=== PATIENT | female | born 1975 | race Caucasian/White ===

== ENCOUNTER 2022-05-26 08:38 | Outpatient (CLI) | payer OTHER, SELFPAY ==
--- NOTE | 2022-05-26 08:30 | ECG_ITS ---
Measurements Intervals [place] Rate: 74 P: -28 NV: 169 QRS: -27 QRSD: 83 T: -29 QT: 386 QTc: 428 Interpretive Statements SINUS RHYTHM ANTERIOR MYOCARDIAL INFARCTION [40+ ms Q WAVE AND/OR ST/T ABNORMALITY IN V3/V4], PROBABLY OLD INFERIOR MYOCARDIAL INFARCTION [40+ ms Q WAVE AND/OR ST/T ABNORMALITY IN II/aVF], OF INDETERMINATE AGE ABNORMAL ECG NO PREVIOUS ECG AVAILABLE FOR COMPARISON Electronically Signed On 05-26-2022 14:01:34 CDT by Damon Gardner M.D.
[2022-05-26 09:10] LABS: Hematocrit 39.7 % (37.0-47.0); Hemoglobin 13.1 g/dL (12.0-15.0)
[2022-05-26 09:25] LABS: INR 1.6
[2022-05-26 09:26] LABS: Partial Thromboplastin Time 39.4 SECONDS (22.3-36.8)
[2022-05-26 09:29] LABS: Anion Gap 9 mmol/L (8-16); Blood Urea Nitrogen 13 mg/dL (7-17); Carbon Dioxide 30 mmol/L (22-30); Chloride 98 mmol/L (98-107); Estimated Glomerular Filt Rate > 60; Glucose 122 mg/dL (65-110); Potassium 3.5 mmol/L (3.4-5.0); Sodium 137 mmol/L (137-145)
== END 2022-05-26 08:39 | disposition home or self-care (01) ==
LOC: ANHSURGERY 08:44
PROVIDERS: Anesthesiology; PCP Family Medicine; Visit Provider Obstetrics & Gynecology
DX: I10 Essential (primary) hypertension (principal); D69.9 Hemorrhagic condition, unspecified; D64.9 Anemia, unspecified; Z01.818 Encounter for other preprocedural examination
CPT/HCPCS: 36415; 80048; 85014; 85018; 85610; 85730; 93005

== ENCOUNTER 2022-07-28 02:57 | Day surgery (SDC) | payer OTHER, SELFPAY ==
[2022-05-22 16:51] VITALS: BMI 35.4
--- NOTE | 2022-05-22 17:01 | PC.NURSE ---
Addendum entered by Lyla Gooden RN 07/16/22 13:03: PT TO ARRIVE AT 0800 ON 07/28/22 FOR SURGERY AT 1000. PT STATES SHE WAS INSTRUCTED BY DR. MOBLEY TO STOP XARELTO AFTER HER EVENING DOSE ON 07/26. Addendum entered by Deidra Valera RN 05/22/22 17:18: PT STATES DR. MOBLEY INSTRUCTED HER TO USE HER XARELTO LAST ON 05/26/22 Original Note: Report to the Outpatient Waiting Room, entrance under the [place] [facility] located off [facility], at time _0900 on date 05/28/22_. OR Time: _1100_. - You and your visitor will be asked to self-screen and do not enter if you have any COVID symptoms. - Only one visitor and NO children visitors are allowed at this time. - The patient visitor is requested to leave or wait in car when not with patient due to restrictions. - A mask is required within the hospital. Patients may have clear liquids (water, carbonated beverages, clear teas, apple juice) until 3 hours prior to surgery with a maximum of 20 ounces. - No food from midnight until time of surgery - Infants may have breast milk until 4 hours before surgery, infant formula 6 hours prior to surgery. - Children will be allowed to drink immediately following surgery. If applicable, please bring a bottle or sippy cup to assist with drinking. Juice, water, soda, and popsicles are readily available. For infants on formula, please bring formula the day of surgery. Pacifiers are allowed. Take the following medications with a SIP of water the morning of surgery: _NONE Medications to discontinue per physician ___XARELTO Date to take last dose__05/26/22 Please no make-up, nail hungarian, hairspray, perfume, deodorant, or body powder the day of surgery. No jewelry (including any body piercings) or valuables the day of surgery, leave them at home. Please take a shower or bath the night before, or the morning of, surgery with an antibacterial soap. Wear comfortable, loose fitting clothing. Children are encouraged to wear pajamas. - Jewelry must be removed prior to entering the operating room. Rings and piercings that are not removed may be cut off. - The hospital will not accept responsibility for valuables. - Please leave all valuables, including medications, at home the day of surgery. If you are going home after surgery, a licensed regional refrigerated cdl truck driver must drive you home. - NO public transportation without another adult. - We recommend that an adult stay with you for 24 hours following discharge. - We also recommend that you do not drive, make important decision, drink alcoholic beverages, or take any drugs that were not prescribed by your health care provider for at least 24 hours after your discharge time. For Pediatric surgeries, we recommend two adults accompany the child home (only one inside the building at this time). Follow any additional instructions given to you from your surgeon. If you or anyone in your household have experienced Covid symptoms in the past week, please notify your surgeon or the nurse liaison at the phone number below for possible testing. Telephone instructions given to _PATIENT___and asked if any additional questions and then verbalized understanding. Patient advised to call surgeon office or pre surgery nurse liaison [phone] if any additional questions.
[2022-07-16 12:51] VITALS: BMI 35.4
[2022-07-28] VITALS (11 sets, daily range): BP systolic 132–166; BP diastolic 70–93; PULSE 61–79; RESP 13–22; TEMP 36.2–36.6; O2SAT 96–100
[2022-07-28] MEDS: ACETAMINOPHEN 500 MG TABLET 1000 MG PO (08:29)
[2022-07-28] MEDS: KETOROLAC 15 MG/ML VIAL (*BKC) IV PUSH (08:45)
[2022-07-28] MEDS: LACTATED RINGERS 1,000 ML 30 ML IV CONT ×3 (08:45→15:15)
--- NOTE | 2022-07-28 09:04 | WPDANESEPPF ---
Anes - Initial Pre Proc Eval Procedure: Operation Date: 07/28/22 10:00 Proposed Procedures p Robotic Assisted Laparoscopic Bilateral Salpingectomy - Jasvir Rivera MD s Hysteroscopy Dilation and Curettage, Danette Endometrial Ablation - Jasvir Rivera MD Date/Time: 07/28/22 09:04 Surgeon: Jasvir Rivera MD Pre Op Diagnosis: menorrhagia, desires steriliziation Patient Data Age: 47 Gender: F Height: 1.55 m Weight: 82 kg Last Vital Signs Temp 36.6 C 07/28/22 08:48 Pulse 66 07/28/22 08:48 Resp 16 07/28/22 08:48 BP 132/81 07/28/22 08:48 Pulse Ox 98 07/28/22 08:48 O2 Del Method Room Air 07/28/22 08:48 Allergies Allergy/AdvReac Type Severity Reaction Status Date / Time No Known Allergies Allergy Verified 07/28/22 08:08 Home Medications Medication Instructions Recorded Confirmed Type cetirizine 10 mg tablet (Zyrtec) 10 mg PO DAILY 05/22/22 07/28/22 History rivaroxaban 20 mg tablet (Xarelto) 20 mg PO DAILY 05/22/22 07/28/22 History valsartan 160 1 tablet PO DAILY 05/22/22 07/28/22 History mg-hydrochlorothiazide 25 mg tablet Patient hx anesthesia problems: none Family hx anesthesia problems: none Results Review: All pre-operative results and documents have been reviewed as part of the pre-operative evaluation. [facility] Past Medical History Medical History (Updated 07/28/22 @ 09:05 by Zach Cifuentes MD) HTN (hypertension) Hyperlipidemia Obesity Social History Social History Smoking packs per day: 0.5 Smoking cigarettes per day: 10.0 Years smoked: 10 Smoking pack-years: 5.00 Smoking status: Former smoker Tobacco type: cigarettes Smoking end date: 10/12/11 Alcohol intake: current Alcohol use details: ONCE A MONTH-5 Substance use: never Substance use type: does not use Living arrangements: with family Spiritual care concerns: No Anes - Eval Final PreProcedure Day of Procedure 07/28/22 09:04 Patient weight: obese Heart: regular rate and rhythm Lungs: clear to auscultation Airway: Mallampati scale class II Last oral intake: >/= 8 hours ASA classification: III Emergent: no Anesthetic plan: proceed Results Review: All pre-operative results and documents have been reviewed as part of the pre-operative evaluation. Informed Consent: The patient's anesthetic plan and its attendant risks and benefits were discussed with the patient/family/POA. Questions were solicited and answers provided to the satisfaction of the patient/family/POA.
--- NOTE | 2022-07-28 10:18 | WPDHPUPDATE1 ---
History and Physical Update Update Date/Time: 07/28/22 10:18 History and Physical has been reviewed, including an updated exam of the patient. There are NO changes in the patient's condition. Risks, benefits, and alternatives have been discussed and questions answered. Patient agrees to proceed with procedure.
--- NOTE | 2022-07-28 13:13 | W.PM.PROC2 ---
Procedure Note - Detailed Date of Procedure 07/28/22 Pre-op Diagnosis menorrhagia, desires steriliziation Post-op Diagnosis Same ( adhesions, intra-abdominal; multiple left ovarian cysts, right ovarian cyst) Procedure Performed Robotic assisted bilateral salpingectomy, left oophorectomy, adhesiolysis; endometrial ablation with hysteroscopy , right ovarian cystectomy Surgeon Jasvir Rivera MD Anesthesia General Indications Unwanted fertility Findings Large hernia in the lower abdomen at the midline from approximately the umbilicus down to the suprapubic area. 3 large ovarian cyst in the left ovary containing dark fluid, adhesions between the omentum and the anterior abdominal wall, normal vulva, vagina, the cervix, normal appearing endometrial cavity. Description of Procedure the patient taken operating room she has prepped draped in the dorsal lithotomy position after induction of general anesthesia. 5 mm skin incision was made in the left upper quadrant the abdomen. The Visiport trocar was placed with the laparoscopic within the trocar. Pneumoperitoneum was achieved. A supraumbilical incision was made, it was 8 mm, a 8 mm robotic trocars placed the Intra-abdominal cavity. This was done under direct is a cystoscope as was a right upper quadrant trocar. and 8 mm incision was made with a scalpel and a 8 mm trocar was placed intra-abdominal cavity and direct visualization of the scope. The left upper quadrant trocar was replaced with a robotic trocar. The pelvis examined and the above findings were noted. 30 minutes of adhesiolysis was performed freeing the omentum from the anterior abdominal wall. The bilateral salpingectomy was performed. The mesosalpinx between the ovary and the fallopian tube was cauterized transected. In a stepwise fashion around the fallopian tube to the cornual region of the uterus mesosalpinx was grasped and cauterized transected vessel sealer. The tube was then transected at the uterine cornua bilaterally. This was all done in a bilateral fashion. The left ovary was removed. The infundibulopelvic ligament was grasped and cauterized and transected with the vessel sealer the paraovarian tissue was cauterized transected with the vessel sealer. A right ovarian cystectomy was performed. The cyst was drained in the cyst capsule was removed with the vessel sealer and the cut surface was cauterized. The specimens were placed through an endobag and they were taken out through the supraumbilical site. The incision had to be enlarged using scalpel. The fascia was then closed with 0 Vicryl. The skin was closed subcuticular Vishal Monocryl. The trocars were removed. The pneumoperitoneum was reduced. Speculum was placed in the vagina. Cervix grasped with a tenaculum. The hysteroscope was inserted the intrauterine cavity. It appeared normal. D&C was performed. The measurements were taken and the cavity length was entered into the hand piece. The handpiece was inserted and expanded. The energy cycle was started. The balloon of the cervix was inflated prior to that. With degenerative cycle was completed the hysteroscope was reinserted into the uterus and the a well desiccated uterine cavity was observed. The the procedure was then terminated. Sponge lap and needle counts were correct x2. The patient's take over room in stable condition. She tolerated the procedure well. Estimated Blood Loss -75.0 Drains No Packing No Pathology Yes Complications No immediate complications Condition Stable Disposition PACU
[2022-07-28] MEDS: fentaNYL CITRATE INJ (*CRX) 100 MCG/2 ML VIAL 25 MCG IV PUSH ×3 (13:39→14:02)
[2022-07-28] MEDS: oxyCODONE HCL (*CRX) 5 MG TAB IR PO (14:25)
[2022-07-28] MEDS: ONDANSETRON INJ 4 MG/2 ML VIAL IV PUSH (15:20)
--- NOTE | 2022-08-20 22:42 | PM.IMHP ---
H&P: HPI History of Present Illness Date/Time: 08/20/22 22:42 Chief Complaint: unwanted fertility Narrative: patient is a 47-year-old female with unwanted fertility. We have agreed to perform laparoscopic bilateral salpingectomy. She understands risks. She understands injuries make result in hospitalization, more surgery, severe illness. She denies any nausea, vomiting, fever, chills. She denies any chest pain or shortness of breath. Review of Systems Review of Systems: All systems reviewed & are unremarkable except as noted in HPI and below Constitutional: Constitutional: Denies chills, Denies fatigue, Denies fever(s) and Denies weakness Eyes: Eyes: Denies blurry vision, Denies change in vision, Denies loss of peripheral vision, Denies loss of vision, Denies other visual disturbances and Denies eye pain ENT: Denies vertigo, Denies dizziness, Denies hearing loss, Denies mouth pain, Denies nasal obstruction, Denies neck mass and Denies neck pain Cardiovascular: Cardiovascular: Denies chest pain, Denies diaphoresis, Denies syncope, Denies leg edema and Denies dyspnea Respiratory: Respiratory: Denies chest congestion, Denies cough, Denies hemoptysis, Denies dyspnea and Denies wheezing Gastrointestinal: Gastrointestinal: Denies abdominal pain, Denies constipation, Denies diarrhea, Denies nausea and Denies vomiting Genitourinary: Genitourinary: Denies hematuria, Denies change in libido, Denies nocturia, Denies genital lesions, Denies flank pain and Denies urinary urgency Musculoskeletal: Musculoskeletal: Denies abnormal gait, Denies back pain, Denies myalgias, Denies arthralgias, Denies joint swelling, Denies muscle weakness and Denies neck pain Integumentary/Breasts: Skin/Breast: Denies swelling, Denies breast pain, Denies breast mass, Denies dry skin, Denies nipple discharge, Denies unusual bruising and Denies jaundice Neurologic: Denies Neuro-related abnormal movements, Denies Abnormal speech present, Denies abnormal gait, Denies behavioral changes, Denies confusion, Denies vertigo, Denies dizziness, Denies syncope, Denies loss of vision, Denies memory loss, Denies convulsions and Denies weakness Psychiatric: Psychiatric: Denies abnormal sleep pattern, Denies behavioral changes, Denies change in libido, Denies confusion, Denies depression, Denies anhedonia and Denies memory loss Endocrine: Endocrine: Reports no additional endocrine complaints, Denies change in libido and Denies fatigue Hematologic/Lymphatic: Hematologic/Lymphatic: Reports no additional hematologic/lymphatic complaints Allergic/Immunologic: Allergic/Immunologic: Reports no additional allergic/immunologic complaints and Denies wheezing PMFSH Past Medical History Medical History (Updated 08/20/22 @ 22:44 by Jasvir Rivera MD) HTN (hypertension) Hyperlipidemia Obesity Social History Social History Smoking packs per day: 0.5 Smoking cigarettes per day: 10.0 Years smoked: 10 Smoking pack-years: 5.00 Smoking status: Former smoker Tobacco type: cigarettes Smoking end date: 10/12/11 Alcohol intake: current Alcohol use details: ONCE A MONTH-5 Substance use: never Substance use type: does not use Living arrangements: with family Spiritual care concerns: No Meds Home Medications and Allergies Home Medications Medication Instructions Recorded Confirmed Type cetirizine 10 mg tablet (Zyrtec) 10 mg PO DAILY 05/22/22 07/28/22 History rivaroxaban 20 mg tablet (Xarelto) 20 mg PO DAILY 05/22/22 07/28/22 History valsartan 160 1 tablet PO DAILY 05/22/22 07/28/22 History mg-hydrochlorothiazide 25 mg tablet hydrocodone 5 mg-acetaminophen 325 1 tablet PO Q4H PRN pain #14 tabs 07/28/22 Rx mg tablet Allergies Allergy/AdvReac Type Severity Reaction Status Date / Time No Known Allergies Allergy Verified 07/28/22 08:08 Exam Const: General: cooperative, healthy
== END 2022-07-28 15:45 | disposition home or self-care (01) ==
PROVIDERS: PCP Family Medicine; Visit Provider Obstetrics & Gynecology
PROC: 8E0W4CZ Robotic Assisted Procedure of Trunk Region, Percutaneous Endoscopic Approach (ICD-10-PCS; CPT 49320; principal; 2022-07-28 10:00)
PROC: 0U5B8ZZ Destruction of Endometrium, Via Natural or Artificial Opening Endoscopic (ICD-10-PCS; CPT 58563; 2022-07-28 10:00)
DX: N92.0 Excessive and frequent menstruation with regular cycle (principal); Z30.2 Encounter for sterilization; N73.6 Female pelvic peritoneal adhesions (postinfective); N83.202 Unspecified ovarian cyst, left side; N83.201 Unspecified ovarian cyst, right side; K42.9 Umbilical hernia without obstruction or gangrene; I10 Essential (primary) hypertension; E78.5 Hyperlipidemia, unspecified; E66.9 Obesity, unspecified; Z68.34 Body mass index [BMI] 34.0-34.9, adult; Z87.891 Personal history of nicotine dependence; Z79.01 Long term (current) use of anticoagulants; Z86.718 Personal history of other venous thrombosis and embolism
CPT/HCPCS: 58661; 58662; 58563; 36415; 86850; 86900; 86901; 88305; A9270; J1100; J1170; J1885; J2250; J2405; J2704; J2710; J3010; J7030; J7120

== ENCOUNTER 2023-07-06 19:05 | Emergency (ER) | payer OTHER, SELFPAY ==
--- NOTE | ~2023-07-06 | XR_ITS ---
EXAM: XR ankle RT min 3V DATE: 07/06/2023 19:38 HISTORY: WALKING A DOG, ROLLED IN A HOLE 07/06/23. LAT PAIN . COMPARISON: None available. FINDINGS: Normal mineralization. No fracture or dislocation. No lytic or blastic lesion. Mild degene rative changes. Mild Achilles and plantar enthesopathy. No erosion or periosteal change. Lateral ankl e soft tissue swelling. IMPRESSION: No acute osseous finding in the right ankle. Reviewed, dictated and finalized at location K.
[2023-07-06 19:16] VITALS: BP 144/93; PULSE 92; RESP 20; TEMP 36.8; O2SAT 99
[2023-07-06 19:23] VITALS: BP 144/93; PULSE 92; RESP 20; TEMP 36.8; O2SAT 99
--- NOTE | 2023-07-06 19:39 | ED.LOWEXIN ---
HPI - Extremity Injury (Lower) General Chief Complaint: Extremity Injury, Lower Stated Complaint: Right Ankle Injury Time Seen by Provider: 07/06/23 19:39 Source: patient, RN notes reviewed and old records reviewed Mode of arrival: ambulatory Limitations: no limitations History of Present Illness HPI Narrative: 48-year-old female presents to the [facility] with complaints of right ankle pain. Patient states that she was walking her son's dog this morning when she stepped in a hole and rolled her ankle in versus sleep. Swelling noted. No treatment prior to arrival Onset (ago): hour(s) Related Data Home Medications Medication Instructions Recorded Confirmed cetirizine 10 mg tablet (Zyrtec) 10 mg PO DAILY 05/22/22 07/06/23 rivaroxaban 20 mg tablet (Xarelto) 20 mg PO DAILY 05/22/22 07/06/23 valsartan 160 1 tablet PO DAILY 05/22/22 07/06/23 mg-hydrochlorothiazide 25 mg tablet Allergies Allergy/AdvReac Type Severity Reaction Status Date / Time No Known Allergies Allergy Verified 07/06/23 19:22 Review of Systems Review of Systems: All systems reviewed & are unremarkable except as noted in HPI and below Constitutional: Constitutional: Reports no additional constitutional complaints Eyes: Eyes: Reports no additional eye complaints ENT: Reports system reviewed and no additional complaints, except as documented Cardiovascular: Cardiovascular: Reports no additional cardiovascular complaints, Denies chest pain and Denies dyspnea Respiratory: Respiratory: Reports no additional respiratory complaints, Denies chest congestion, Denies cough and Denies dyspnea Gastrointestinal: Gastrointestinal: Reports no additional gastrointestinal complaints, Denies abdominal pain, Denies nausea and Denies vomiting Musculoskeletal: Musculoskeletal: Reports as per HPI, Reports arthralgias (Right ankle) and Reports joint swelling (Right lateral ankle) Integumentary/Breasts: Skin/Breast: Reports system reviewed and no additional complaints, except as docu Neurologic: Reports system reviewed and no additional complaints, except as documented Psychiatric: Psychiatric: Reports no additional psychiatric complaints Allergic/Immunologic: Allergic/Immunologic: Reports no additional allergic/immunologic complaints PMFSH Past Medical History Medical History HTN (hypertension) Hyperlipidemia Obesity Social History Social History Smoking packs per day: 0.5 Smoking cigarettes per day: 10.0 Years smoked: 10 Smoking pack-years: 5.00 Smoking status: Former smoker Tobacco type: cigarettes Smoking end date: 10/12/11 Alcohol intake: current Alcohol use details: ONCE A MONTH-5 Substance use: never Substance use type: does not use Living arrangements: with family Spiritual care concerns: No Comments At the time of my signature, I reviewed and agree with the nursing past medical, surgical, social, and family history. There is no relevant family history pertinent to the patient complaint. Exam Const: General: cooperative, healthy appearing, comfortable, no acute distress, well developed, alert and well nourished Nutritional Appearance: well nourished Orientation/consciousness: patient oriented x3 Limitations: no limitations HENMT: Head: normal to inspection Ears: hearing grossly normal bilaterally and external ears normal Face/Nose/Sinus: Normal external nose present, Normal nares present, Normal nasal mucous membranes and turbinates present, normal facial exam and face symmetric Face and sinus: normal facial exam and face symmetric Eyes: General: appearance normal, both eyes and all related structures Alignment and Position: alignment normal Periorbital: periorbital findings normal Pupils: Equal, round and reactive pupils present EOM: EOMs intact bilaterally Neck: Neck: normal visual inspection, full ROM
== END 2023-07-06 20:00 | disposition home or self-care (01) ==
PROVIDERS: Emergency Provider Nurse Practitioner; PCP Family Medicine
DX: S93.401A Sprain of unspecified ligament of right ankle, initial encounter (principal); S96.911A Strain of unspecified muscle and tendon at ankle and foot level, right foot, initial encounter; I10 Essential (primary) hypertension; E78.5 Hyperlipidemia, unspecified; F17.210 Nicotine dependence, cigarettes, uncomplicated; Z79.899 Other long term (current) drug therapy; X50.0XXA Overexertion from strenuous movement or load, initial encounter; Y93.K1 Activity, walking an animal
CPT/HCPCS: 73610; 99213; G0463

== ENCOUNTER 2024-07-06 08:31 | Emergency (ER) | payer OTHER, SELFPAY ==
[2024-07-06 08:38] VITALS: BP 139/82; PULSE 101; RESP 16; TEMP 36.6; O2SAT 99
--- NOTE | 2024-07-06 08:41 | ED.URI ---
HPI - URI/Sore Throat General Chief Complaint: Upper Respiratory Infection Stated Complaint: bad cough Time Seen by Provider: 07/06/24 08:47 Source: patient Mode of arrival: ambulatory Limitations: no limitations History of Present Illness HPI Narrative: 49-year-old female presented for complaint of cough for 2 days. States cough is worse at night, and results in chest tightness with coughing. Cough is occasionally productive of white sputum. She denies any associated symptoms. She has been taking Mucinex for symptoms which has helped her sleep. Related Data Home Medications Medication Instructions Recorded Confirmed cetirizine 10 mg tablet (Zyrtec) 10 mg PO DAILY 05/22/22 07/06/24 rivaroxaban 20 mg tablet (Xarelto) 20 mg PO DAILY 05/22/22 07/06/24 valsartan 160 1 tablet PO DAILY 05/22/22 07/06/24 mg-hydrochlorothiazide 25 mg tablet Allergies Allergy/AdvReac Type Severity Reaction Status Date / Time No Known Allergies Allergy Verified 07/06/23 19:22 Review of Systems Review of Systems: CONSTITUTIONAL: Denies body aches, fever, chills, or sweats. EYES: Denies visual changes, redness, or discharge. ENT: Denies rhinorrhea, congestion, sore throat, or otalgia. CARDIOVASCULAR: Denies chest pain, palpitations, or edema. RESPIRATORY: Reports cough, denies sob, wheezing. GASTROINTESTINAL: Denies abdominal pain, nausea, vomiting, or diarrhea. SKIN: Denies rash, itching, or wounds. MUSCULOSKELETAL: Denies back pain, joint pain, or myalgia. NEUROLOGIC: Denies headache, numbness, tingling, or weakness. All systems reviewed & are unremarkable except as noted in HPI and below [facility] Past Medical History Medical History HTN (hypertension) Hyperlipidemia Obesity Social History Social History Smoking packs per day: 0.5 Smoking cigarettes per day: 10.0 Years smoked: 10 Smoking pack-years: 5.00 Smoking status: Former smoker Tobacco type: cigarettes Smoking end date: 10/12/11 Alcohol intake: current Alcohol use details: ONCE A MONTH-5 Substance use: never Substance use type: does not use Living arrangements: with family Spiritual care concerns: No Comments At time of signature, I have reviewed and agree with nursing past medical, surgical, social and family history unless otherwise noted. Please see nursing chart for further information. There is no relevant family history pertinent to the presenting complaint Exam Narrative: GENERAL: Well-appearing, in no acute distress. EYES: EOMI. No redness or drainage. Conjunctivae normal. ENT: Mucous membranes pink and moist. No rhinorrhea. TMs normal bilaterally. Throat normal. Uvula midline. NECK: Normal AROM. Supple. CHEST: No respiratory distress. lungs clear to all lau. HEART: Regular rate and rhythm. No murmur appreciated. ABDOMEN: Soft, nontender, nondistended, normal active bowel sounds. SKIN: Warm, dry, no rash. Capillary refill normal. Normal skin turgor. NEURO: Alert and oriented x3. Gait steady. Course Course Emergency Course: Patient is aware of diagnosis, understands and agrees to treatment plan. Anticipatory guidance given. Patient agrees to follow-up as directed and is aware of reasons to seek care at the emergency department. Portions of this record may have been created with voice recognition software Level of Care: Express Care Visit MDM - URI/Sore Throat MDM Narrative Medical decision making narrative: Discussed physical exam findings. Advised supportive measures and signs/symptoms to go to the ER. Pt is appropriate for outpt treatment and f/u. Differential Diagnosis Differential diagnosis: Likely upper respiratory infection, sinusitis, viral infection and bronchitis Discharge Plan Discharge Clinical Impression: Bronchitis Patient Disposition: Home, Self-Care Condition
== END 2024-07-06 08:58 | disposition home or self-care (01) ==
PROVIDERS: Emergency Provider Nurse Practitioner Family; PCP Internal Medicine
DX: J40 Bronchitis, not specified as acute or chronic (principal); Z87.891 Personal history of nicotine dependence; I10 Essential (primary) hypertension; E78.5 Hyperlipidemia, unspecified; E66.9 Obesity, unspecified; Z68.35 Body mass index [BMI] 35.0-35.9, adult; Z79.01 Long term (current) use of anticoagulants
CPT/HCPCS: 99213; G0463

== ENCOUNTER 2024-12-20 13:14 | Emergency (ER) | payer OTHER, SELFPAY ==
--- NOTE | ~2024-12-20 | XR_ITS ---
CHEST RADIOGRAPH, PA AND LATERAL CLINICAL HISTORY: cough and congestion since . . COMPARISON: None available TECHNIQUE: PA and lateral views of the chest. FINDINGS The cardiomediastinal silhouette is unremarkable. Peribronchial thickening is detected bilaterally. At the remainder of the lungs are clear. IMPRESSION: Peribronchial thickening, without focal infiltrate or effusion. Reviewed, dictated and finalized at location A.
[2024-12-20 13:22] VITALS: BP 128/75; PULSE 86; RESP 18; TEMP 36.7; O2SAT 97
--- NOTE | 2024-12-20 13:41 | ED_ITS ---
HPI - URI/Sore Throat General Chief Complaint: Upper Respiratory Infection Stated Complaint: Cough/Runny Nose/Headache Time Seen by Provider: 12/20/24 13:41 Source: patient, RN notes reviewed and old records reviewed Mode of arrival: ambulatory Limitations: no limitations History of Present Illness HPI Narrative: 49 year old female who presents to [facility] care with complaints of starting on with sinus congestion and drainage which has gone to her chest over the weekend with cough and headache. Patient reports that she felt weak this morning and she awoke drenched this morning. Patient states that she thinks she has the Flu . Patient reports that she has been taking Mucinex for her symptoms. MD elicited complaint: cough, rhinorrhea, nasal congestion and other Pertinent past history: other (on blood thinner) Onset (ago): day(s) (5-6 days) Severity: moderate Able to tolerate fluids by mouth: Yes Treatments prior to arrival: other (Mucinex) Related Data Home Medications ?Medication ?Instructions ?Recorded ?Confirmed ?Last Taken ?Type cetirizine 10 mg tablet (Zyrtec) 10 mg PO DAILY 05/22/22 07/06/24 07/27/22 History rivaroxaban 20 mg tablet (Xarelto) 20 mg PO DAILY 05/22/22 07/06/24 07/26/22 History valsartan 160 1 tablet PO DAILY 05/22/22 07/06/24 07/27/22 History mg-hydrochlorothiazide 25 mg tablet Allergies Allergy/AdvReac Type Severity Reaction Status Date / Time No Known Allergies Allergy Verified 07/06/23 19:22 Review of Systems Review of Systems: CONSTITUTIONAL: Reports malaise, chills, sweats, or fever.weakness EYES: Denies visual changes, redness, or discharge. ENT: Reports rhinorrhea, congestion, sinus pain, no otalgia and no sore throat. CARDIOVASCULAR: Denies chest pain, palpitations, or edema. RESPIRATORY: Reports cough.? Denies dyspnea. GASTROINTESTINAL: Denies abdominal pain, nausea, vomiting, diarrhea SKIN: Denies rash or itching. MUSCULOSKELETAL: Denies myalgia. NEUROLOGIC: Reports headache. 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 May-Thurner syndrome HTN (hypertension) Hyperlipidemia Obesity Surgical History Surgical History (Updated 12/23/24 @ 15:59 by Destini Argueta NP) Previous section x2 H/O tubal ligation Status post insertion of iliac artery stent Social History Social History Smoking packs per day: 0.5 Smoking cigarettes per day: 10.0 Years smoked: 10 Smoking pack-years: 5.00 Smoking status: Former smoker Tobacco type: cigarettes Smoking end date: 10/12/11 Alcohol intake: current Alcohol use details: ONCE A MONTH-5 Substance use: never Substance use type: does not use Living arrangements: with family Spiritual care concerns: No Comments At time of signature, agree with nursing past medical, surgical, social and family history. There is no relevant family history pertinent to the presenting complaint Exam Narrative: GENERAL: Ill-appearing, well-nourished, and in no acute distress. HEAD: Normocephalic EYES: PERRLA, conjunctivae clear ENT: Nares clear, turbinates edematous and erythematous, clear discharge. Mucous membranes moist. TM pearly balderrama with dull light reflex bilaterally; no tragal tenderness. Oropharynx erythematous without lesions. Tonsils not enlarged and without exudate, no drooling, no hoarseness, no trismus, uvula midline. post nasal drainage NECK: Supple. No lymphadenopathy CHEST: Faint scattered expiratory wheezes auscultation, breath sounds equal. +wheezing, no rhonchi, rales, or stridor. No respiratory distress, speaks in full sentences. HEART: Regular rate and rhythm. No murmur heard. SKIN: Warm, dry, no rash. NEURO: Alert and oriented x3. PSYCH: Normal mood and affect Course Course Emergency Course: Patient is aware of diagnosis, understands and agrees to treatment plan.? Anticipatory guidance given.? Patient agrees to follow-up as directed and is aware of reasons to seek care at the emergency department. Portions of this record may have been created with voice recognition software Level of Care: Express Care Visit Vital Signs Vital signs: Vital Signs Temperature 36.7 C 12/20/24 13:22 Pulse Rate 86 12/20/24 13:22 Respiratory Rate 18 12/20/24 13:22 Blood Pressure 128/75 12/20/24 13:22 Pulse Oximetry 97 12/20/24 13:22 Oxygen Delivery Room Air 12/20/24 13:22 Temperature 36.7 C 12/20/24 13:22 Pulse Rate 86 12/20/24 13:22 Respiratory Rate 18 12/20/24 13:22 Blood Pressure 128/75 12/20/24 13:22 Pulse Oximetry 97 12/20/24 13:22 Oxygen Delivery Room Air 12/20/24 13:22 Reviewed MDM - URI/Sore Throat MDM Narrative Medical decision making narrative: Differential diagnosis considered: Ledesma virus, strep pharyngitis, allergic rhinitis, upper respiratory tract infection, sinusitis, rhinosinusitis, nasopharyngitis. viral pharyngitis, otitis media, otitis externa, pneumonia, bronchitis, viral cough syndrome, viral syndrome, and influenza.? Exam findings show no acute concerns or changes; patient is non-toxic appearing and is in no distress.? Patient is appropriate for outpatient treatment and follow-up. Differential Diagnosis Differential diagnosis: Likely upper respiratory infection, sinusitis, viral infection, bronchitis and other (acute cough) Medical Records Attestation: I reviewed the patient's medical records. Lab Data Attestation: I reviewed the patient's lab results. Lab results narrative: Influenza A negative, Influenza B negative, COVID antigen negative Labs: Lab Results 12/20/24 Range/Units 14:07 POC Influenza A Ag Negative (Negative) POC Influenza B Ag Negative (Negative) POC SARS CoV-2 Ag Negative (Negative) reviewed Imaging Data Attestation: I personally reviewed and interpreted this imaging study as follows: My impression: peribronchial thickening without infiltrates or effusion Radiologist's impression: [address] [address] XRay Report Signed Patient: Radha Agustin : 1975 MR#: [id number] Age: 49 Acct:[id number] Loc: [facility] ADM Date: 12/20/24Attending Dr: Ordering Physician: Destini Argueta APRN Date of Service: 12/20/24 Procedure(s): XR chest 2V Accession Number(s): [id number] cc: Maritza, Damon Moncada MD; Destini Argueta APRN~ CHEST RADIOGRAPH, PA AND LATERAL CLINICAL HISTORY: cough and congestion since . . COMPARISON: None available TECHNIQUE: PA and lateral views of the chest. FINDINGS The cardiomediastinal silhouette is unremarkable. Peribronchial thickening is detected bilaterally. At the remainder of the lungs are clear. IMPRESSION: Peribronchial thickening, without focal infiltrate or effusion. Reviewed, dictated and finalized at location A. Please be advised this is a medical document. It is intended for [id number] communication. It is written in medical language and may contain unfamiliar abbreviations or verbiage. Medical documents are intended to carry relevant information, facts as evident, and the clinical opinion of the practitioner at the time of the encounter. This report may have been done utilizing a voice recognition system. Attempts have been made to correct errors. However, there may be uncorrected grammatical, spelling, and recognition errors present. The file time of this note does not necessarily represent the time of service. Dictated By: Leticia Sumner MD 12/20/24 1418 Signed By: <Electronically signed by Leticia Sumner MD in OV> Critical Care Time Critical Care Time Critical Care Time: No Discharge Plan Discharge Clinical Impression: Bronchitis Patient Disposition: Home, Self-Care Condition: Stable Instructions: Antibiotic Form, Acute Bronchitis (ED) Additional Instructions: Increase fluids especially juices and water [id number] cough and cold medicine of your choice for your symptoms Tylenol or Ibuprofen for fever or pain Continue your inhaler/nebulizer as directed Steroids as directed--take with food heat to the face 20-30 minutes 4-6 times a day for pain Salt water gargles, throat lozenges or throat sprays as desired Antibiotic as directed--finished the medication If your symptoms persist, change or worsen significantly before you can contact your personal physician then please, without delay, go to the emergency department for further evaluation. Follow-up with PCP in 7-10 days or sooner if needed Patient Language: Macedonian Prescriptions: New albuterol sulfate [Ventolin HFA] 90 mcg/actuation HFA aerosol inhaler 2 puff inhalation QID PRN (Reason: shortness of breath or wheezing) Qty: 6.7 0RF azithromycin 250 mg tablet See Rx Instructions .ROUTE .COMPLEX Qty: 6 0RF Rx Instructions: For 250 mg dose pack: take 500 mg today (day 1), then 250 mg for 4 days (days 2-5) prednisone 20 mg tablet 40 mg PO DAILY Qty: 10 0RF No Action benzonatate 200 mg capsule 200 mg PO TID PRN (Reason: cough) Qty: 20 0RF methylprednisolone [Medrol (Lalo)] 4 mg tablets,dose pack See Rx Instructions .ROUTE .COMPLEX Qty: 21 0RF Rx Instructions: orally per package directions valsartan-hydrochlorothiazide 160-25 mg tablet 1 tablet PO DAILY Xarelto 20 mg tablet 20 mg PO DAILY Patient Comments: PT TAKES IN EVENING cetirizine [Zyrtec] 10 mg Tablet 10 mg PO DAILY Follow-up/Referrals: Maritza,Damon Moncada MD [Primary Care Provider] - Time of Disposition: 14:34 Quality Peri Coma Scale Eyes: Open Verbal: Oriented and Alert Motor: Follows Commands [place] Coma Total Score: 15
[2024-12-20 14:09] LABS: EDCOVIDSCREEN Negative (Negative); EDINFLUASCREEN Negative (Negative); EDINFLUBSCREEN Negative (Negative)
--- OUTSIDE RECORDS SUMMARY | 2024-12-20 14:40 | XMS_ITS | Data Portability ---
Author Organization [facility] Address [address] [place] [address] [address] Care Team Providers Care Racking Technician Name Role Phone PALOMO THO Primary Care Provider Assessment Encounter Date Assessment Date Assessment LastModified by Organization Details LastModified Time 02/09/2023 02/09/2023 Annual gynecological exam performed. Patient will come back in a year unless there are new symptoms. [email or web address] Not available 02/09/2023 09:55:58 Plan of Treatment Reminders Order Date Submit Date Provider Last Modified By Organization Details Last Modified Time Details Appointments None recorded . Lab None recorded . Referral None recorded . Procedures None recorded . Surgeries hysteros copy, with endometr ial ablation (SURG) [address], [facility], [place], [address], 2 21:24:36 Imaging MAMMO, screenin g, digital, bilatera l 2022 023 [email or web address] [facility], [address], [facility] [address], [place], [address], 3 17:10:55 US, pelvis [address], [address], [place], [address], 20:42:42 US, transvag inal 2021 022 [email or web address] [facility] [address], [place], [address], 20:42:42 Medication Orders metronid azole 500 mg tablet 2021 [facility][id number], [address], [place], [place], [id number], 3 09:56:22 doxycycl ine hyclate 100 mg capsule 2021 [facility] #[id number], [address], [place], [place], [id number], 3 09:56:17 Patient TargetsNo targets recorded. Patient InstructionsNo instructions recorded. Reason for Referral None Reported. Results Created Date Observation Date Name Description Value Unit Range Abnormal Flag Note LastModifiedBy Organization Detail LastModifiedTime 03/06/2003/06/2022 IMAGE GUIDE D PAP AND HPV REGAR DLESS image guided Pap, HPV regardless of Pap result SEE RESULT S BELOW CASE REPOR T: Cytol ogy Gynec ologi stacie Repor t Case: [id number] Autho jonathan luo Provi kiana: Nunu Lopez, USPS LETTER CARRIER Colle cted: 03/06 1546 Order ing Locat ion: [place] Patho logy Recei yuli: 03/07 0651 First Scree n: Isha Coats ret, CT Rescr een: Allie Freire Speci men: Scree maria luisa Pap - Image d, Cervi x STATE MENT OF ADEQU ACY: Unsat isfac tory for evalu ation . FINAL DIAGN OSIS: Unsat isfac tory for evalu ation . Scant squam ous cellu larit y due to exces s inter ferin g blood . Elect landen rosenthal praneeth d by Allie Freire on at 12:52 PM ----- ----- ----- ----- ----- ----- ----- ----- ----- ----- ----- ----- ----- ----- ----- ----- ----- ---- HPV RESUL TS: HPV mRNA E6/E7 : No HPV mRNA Detec sam NOTE: This high risk HPV mRNA assay detec ts fourt een high- risk HPV types (16, 18, 31, 33, 35, 39, 45, 51, 52, 56, 58, 59, 66, 68) witho ut diffe renti ation . COMME NT: Slide scree sean zambrano due to rejec tion by the Thinp rep Imagi ng Syste m. CLINI STACIE INFOR MATIO N: Menst rual Statu s: LMP (if appli cable ): Clini stacie Histo ry/Pr eviou s Pap: Type of Neopl evelyn (if appli cable ): Signi fican t Clini stacie Findi ngs: Other Histo ry: Hormo lan (if appli cable ): Not Available [facility] (Lab) [address] , [place], [address], 03/13/2022 13:56:33 03/06/20 22 03/06/2022 TRICH OMONA S VAGIN ZO (RRNA ) trichomonas vaginalis ribosomal RNA (rrna) Negati ve negati ve Not Available [facility] (Lab) [address], [place], [address], 03/13/2022 13:56:34 03/06/20 22 03/06/2022 CT/GC (YARA) , THINP REP VIAL chlamydia trachomatis, PCR Negati ve negati ve Not Available [facility] (Lab) [address] , [place], [address], 03/13/2022 13:56:34 03/06/20 22 03/06/2022 CT/GC (YARA) , THINP REP VIAL neisseria gonorrhoeae, PCR Negati ve negati ve Not Available [facility] (Lab) [address], [place], [address], 03/13/2022 13:56:34 02/10/20 23 02/09/2023 IMAGE GUIDE D PAP AND HPV REGAR DLESS image guided Pap, HPV regardless of Pap result SEE RESULT S BELOW CASE REPOR T: Cytol ogy Gynec ologi stacie Repor t Case: [id number] Autho jonathan luo Provi kiana: Nunu Lopez, ALEXANDER Colle cted: 02/09 1402 Order ing Locat ion: [place] Patho logy Recei yuli: 02/10 0241 First Scree n: Strut z, Willi am, CT Rescr een: Tessy bradshaw, Herson landers, CT Speci men: Scree maria luisa Pap - Image d, Cervi x STATE MENT OF ADEQU ACY: Satis facto ry for evalu ation Trans forma tion zone compo nent prese nt FINAL DIAGN OSIS: Negat florence for Intra epith elial Lesio n or Niki duff (NIL) . Shift in kristal sugge stive of bacte rial vagin osis. Elect landen rosenthal praneeth d by Tessy bradshaw, Herson landers, CT on 023 at 8:58 PM ----- ----- ----- ----- ----- ----- ----- ----- ----- ----- ----- ----- ----- ----- ----- ----- ----- ---- HPV RESUL TS: HPV mRNA E6/E7 : No HPV mRNA Detec sam NOTE: This high risk HPV mRNA assay detec ts fourt een high- risk HPV types (16, 18, 31, 33, 35, 39, 45, 51, 52, 56, 58, 59, 66, 68) witho ut diffe renti ation . COMME NT: This speci men was revie wed by a Cytot echno logis t and/o r Patho logis t (as indic ated in this repor t) after evalu ation using the Thinp rep Imagi ng Syste m. CLINI STACIE INFOR MATIO N: Menst rual Statu s: LMP (if appli cable ): Clini stacie Histo ry/Pr eviou s Pap: Type of Neopl evelyn (if appli cable ): Signi fican t Clini stacie Findi ngs: Other Histo ry: Hormo lan (if appli cable ): PAP EDUCA JOSE LUIS L NOTE: The Pap Test is a scree maria luisa test with an inher ent false negat florence rate. Liqui d-bas ed sampl ing may decre ase, but will not elimi humphrey, false negat florenec resul ts. A negat florence resul t does not precl ude the prese nce and/o r devel opmen t of disea se, since the prese nce of abnor mal cells in the sampl e depen ds on the locat ion of the lesio n and sampl ing techn ique. Maryanne nued regul ar scree maria luisa is the best metho d of cance r preve ntion . If repor sam cytol ogic findi ng do not corre late with physi stacie and/o r histo rical findi ngs, furth er inves tigat ion is recom jia d, as clini krystyna payne nted. Not Available [facility] (Lab) [address], [place], [address], 02/11/2023 22:01:12 03/12/20 22 03/12/2022 US, michelle s No observ ation record ed. [email or web address] [facility] [address], [place], [address], 03/12/2022 18:44:39 03/12/20 22 03/12/2022 US, marco thompson No observ ation record ed. [email or web address] [facility] [address], [place], [address], 03/12/2022 18:44:50 03/12/20 22 03/12/2022 US, pelvi s No observ ation record ed. [email or web address] [facility] [address], [place], [address], 03/12/2022 20:20:05 05/27/20 22 05/26/2022 elect dang damon am No observ ation record ed. [email or web address] Not Available 2021 22:59:56 07/02/20 22 07/01/2022 US, doppl er, venou s No observ ation record ed. [facility] [address], [place], [address], 02/19/2023 11:16:18 07/02/20 22 07/01/2022 trans -thor acic echoc ardio gram (TTE) (PROC ) No observ ation record ed. Last [facility] [address], [place], [address], 02/19/2023 11:18:21 Result Notes None recorded. 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 2 17:59:29 History of deep vein thrombosis 968323257 Active 2021 LUC [facility] [address], [place], [address], [facility] 2 17:59:44 Problem Notes None recorded. Procedures Surgical History Date Name Laterality Status Provider Name and Address Organization Details Recorded Time 07/28/20 22 HYSTEROSCOPY, WITH ENDOMETRIAL ABLATION (SURG) completed Eloise Courtney [facility] 07/29/2022 11:06:20 03/06/20 Date of Last Pap Smear completed Ailyn Ng [facility] 02/09/2023 09:56:40 Imaging Results Imaging Date Name Status LastModified by Organization Details LastModified Time 03/12/2022 US, pelvis completed [email or web address] [facility] [address], [place], [address], 03/12/2022 18:44:39 03/12/2022 US, transvaginal completed [email or web address] [facility] [address], [place], [address], 03/12/2022 18:44:50 03/12/2022 US, pelvis completed [email or web address] [facility] [address], [place], [address], 03/12/2022 20:20:05 05/26/2022 electrocardiogram completed [email or web address] Informa tion not available 05/27/2022 22:59:56 07/01/2022 US, doppler, venous completed [facility] [address] , [place], [address], 02/19/2023 11:16:18 07/01/2022 trans-thoracic echocardiogram (TTE) (PROC) completed Last [facility] [address], [place], [address], 02/19/2023 11:18:21 Procedure Notes None recorded. Medical Equipment None Reported. Allergies No known drug allergies Medications Name Sig Start Date Stop Date Status Note LastModified by Organization Details LastModified Time doxycycline hyclate 100 mg capsule TAKE 1 CAPSULE BY MOUTH TWICE DAILY 02/09 completed Not Available Not Available Not Available benzonatate 200 mg capsule TAKE 1 CAPSULE BY MOUTH TWICE DAILY FOR UP TO 20 DOSES NEEDED FOR COUGH 02/09 completed Not Available Not Available Not Available hydrocodone 5 mg-acetamino phen 325 mg tablet TAKE 1 TABLET BY MOUTH EVERY 6 HOURS 02/09 completed Not Available Not Available Not Available valsartan 160 mg-hydrochlo rothiazide 12.5 mg tablet TAKE 1 TABLET BY MOUTH EVERY DAY 02/09 completed Not Available Not Available Not Available metronidazol e 500 mg tablet TAKE 1 TABLET BY MOUTH EVERY 8 HOURS 02/09 completed Not Available Not Available Not Available valsartan 160 mg-hydrochlo rothiazide 25 mg tablet TAKE 1 TABLET BY MOUTH DAILY active Not Available Not Available No t Available Zyrtec active Not Available Not Availa ble Not Available Xarelto 03/26 completed Not Available Not Available Not Available Xarelto 20 mg tablet TAKE 1 TABLET BY MOUTH DAILY WITH FOOD FOR BLOOD CLOT IN VEINS active Not Available Not Available No t Available Vitals Date Recorded Body height Body mass index (BMI) Body weight Systolic blood pressure Diastolic blood pressure Provider Name and Address Organization Details Last Updated DateTime 03/26/2022 165.1 cm 30.8 kg/m2 38960.59 g 120 mm[Hg] 76 mm[Hg] [facility] 2 17:31:15 Date Recorded Body height Body mass index (BMI) Body weight Systolic blood pressure Diastolic blood pressure Provider Name and Address Organization Details Last Updated DateTime 08/04/2022 165.1 cm 30.5 kg/m2 62966.4 g 146 mm[Hg] 83 mm[Hg] [facility] 2 17:13:37 Date Recorded Body height Body mass index (BMI) Body weight Systolic blood pressure Diastolic blood pressure Provider Name and Address Organization Details Last Updated DateTime 02/09/2023 165.1 cm 31.2 kg/m2 80363.21 g 136 mm[Hg] 88 mm[Hg] Ailyn Ng [facility] 3 10:13:12 Social History Question Answer Notes LastModified by Organizat ion Details LastModified Time Tobacco Smoking Status Never [facility] 03/06/2022 15:42:51 What Is Your Level Of Alcohol Consumption? Occasional Information not available 03/06/2022 Are You Blind Or Do You Have Difficulty Seeing? No Information not available 03/06/2022 Are You Deaf Or Do You Have Serious Difficulty Hearing? No Information not available 03/06/2022 What Type Of Diet Are You Following? REGULAR Information not available 03/06/2022 Sex: Unknown Functional Status Question Answer Note LastModified by Organizat ion Details LastModified Time Do you have difficulty walking or climbing stairs? No Information not available 03/06/2022 Are you able to walk? YESWOREST Information not available 03/06/2022 Are you able to care for yourself? Yes Information not available 03/06/2022 Do you have difficulty dressing or bathing? No Information not available 03/06/2022 What is your exercise level? Occasional Information not available 03/06/2022 Mental Status None recorded. Family History Nothing Reported. Medical History Condition Response Allergies (Food, seasonal, environmental ) N Other N Blood Transfusion N Drug/Latex Allergies/Reactions N Breast Cancer N Dermatologic Disorders N Lung Disease N Defects or Inherited Disease N Breast Problem N Gestational Diabetes N Hematologic disorders Y Anesthesia Complications N History of STI N Deep Vein Thrombosis N Polycystic ovary syndrome N Anxiety Disorder N Autoimmune disease N Arthritis N Infertility N Polyps N Acid Reflux (GERD) N History of abnormal pap N Cancer N Stroke N Varicosities N Neurologic/Epilepsy N Endometriosis N High Cholesterol N Headaches N Fibromyalgia N Kidney Disease N Heart Problems N Kidney or Bladder Problems N Thyroid Problems N GI Problems N Eating Disorder N Anemia N Art (IVF or FET) N Psychiatric Illness N Ovarian Cancer N Diabetes N Pulmonary (TB, Asthma) N Hepatitis/Liver Disease N No Past Medical History N Eczema N Urinary Tract Infection N Abuse/Domestic Violence N Asthma N Trauma/Violence N Depression/ depression N Heart Disease N Pre-Eclampsia N Hypertension Y Osteoporosis N Thrombophilias N Gynecological History Statement/Question Response Flow Moderate Date of LMP 02/28/2022 STIs/STDs Y HPV Vaccine N Current Control Method Sterilizati on Sexually Active? Y Menses Monthly Y Age of first menstrual cycle 16 Date of Last Pap Smear 03/06/2022 Sexual Problems? N Desired Control Method Ablation LMP Definite Obstetrics History GPAL:G 4 P 2 0 2 2 Type Value Full Term 2 Spontaneous 2 Living 2 Total 4 Past Encounters Encounter ID Performer Location Encounter Start Date Encounter Closed Date Diagnosis/Indication Diagnosis SNOMED-CT Code Diagnosis ICD10 Code Diagnosis Note [id number] L[facility] [address] [address] 03/06/2022 15:35:57 03/07/2022 10:10:07 Abnormal uterine bleeding 0443957951 9100 N93.9 Gynecologi c examination 48472920 Z01.419 Z11.51 Suggested Calcium with Vitamin D 1200-1500m g daily. Patient advised to get an annual flu shot in the fall and she could obtain at [facility] or [facility] clinic. Also to obtain TDap vaccinatio n if you have not had one in the last 10 years. Recommend yearly mammograms . Encouraged monthly self breast exams. Encourage safe sexual practices, to use condoms and limit partners if not already in a monogamous relationsh ip. Engage in daily exercise of low impact aerobic exercise 45-60 minutes 4-5 times weekly. Avoid tobacco and illicit drugs as well as using moderation with alcohol intake less than 1-2 8 oz beverages daily. This lifestyle behavior pattern will lead to less health conditions and longer life span. If BMI greater than 25 weight watchers or dietary consult advised. All questions have been answered. Patient appears to understand informatio n, but if you have any questions please call or respond to this email. 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 She is on blood thinners. Periods have become heavier on the blood thinners, last anywhere from 7-14 days.She is using condoms for control now.She would like to discuss options for heavy periods while on the blood thinners.W torey discussed not a candidate for estrogen therapy.Magy lema is interested in the Mirena IUD.We agreed to have her get a pelvic u/s and then f/u with Dr. Rivera for u/s f/u, can discuss options for management at that appointmen tLast pap in 2013, HR HPV (+)Pap done todaySTI testing added to papUTD with mammogramR TC for pelvic u/s [id number] Dee James [facility] [address] [address] 03/12/2022 17:13:58 03/12/2022 18:27:44 Abnormal uterine bleeding 9739156171 9100 N93.9 [id number] Lexa Rivera MD [facility] [address] [address] 03/26/2022 16:45:17 03/27/2022 14:23:03 Menorrhagia 200340885 N92.0 this patient is a 46-year-ol d female with severe menorrhagi a and unwanted fertility. We have agreed to perform laparoscop ic bilateral salpingect jesika and endometria l ablation with hysterosco py. She understand s risks, benefits, and alternativ es. She has completed the informed consent process and is ready to proceed. [id number] Lexa Rivera MD [facility] [address] [address] 08/04/2022 17:05:16 08/04/2022 17:42:31 Bacterial vaginosis 888116406 N76.0 this patient is a 47-year-ol d female presents postop follow-up. She is 1 week postop from my laparoscop ic /Robotic bilateral salpingect jesika and endometria l ablation. She tolerated to recovery well. She has some foul-smell ing vaginal discharge. She has no other signs or symptoms of endometrit is. We agreed to treat with antibiotic s. She will up as needed. She was given precaution s on endometrio sis. Incisions are clean dry and intact. [id number] LUC Bernal [facility] [place] [address] [address] 02/09/2023 09:50:35 02/09/2023 10:18:07 Gynecologic examination 85488027 Z01.419 Z11.51 Suggested Calcium with Vitamin D 1200-1500m g daily. Patient advised to get an annual flu shot in the fall and she could obtain at [facility] or [facility] take care clinic. Also to obtain TDap vaccinatio n if you have not had one in the last 10 years. Recommend yearly mammograms . Encouraged monthly self breast exams. Encourage safe sexual practices, to use condoms and limit partners if not already in a monogamous relationsh ip. Engage in daily exercise of low impact aerobic exercise 45-60 minutes 4-5 times weekly. Avoid tobacco and illicit drugs as well as using moderation with alcohol intake less than 1-2 8 oz beverages daily. This lifestyle behavior pattern will lead to less health conditions and longer life span. If BMI greater than 25 weight watchers or dietary consult advised. All questions have been answered. Patient appears to understand informatio n, but if you have any questions please call or respond to this email. 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 Doing well, no periods sincehx of HPV (+) pap in 2012, last pap 03/06/22, unsatisfac tory/ HPV (-)pap done todaySTI testing declinedMa mmogram order givenrevie wed colon CA screening, she will consider and discuss this with PCPRTC in 1 year or sooner if needed BP precaution s discussed Screening for malignant neoplasm of breast 610600966 Z12.39 Health Concerns Section Related Observation LastModified by Organization Detai ls LastModified Time None Recorded Concern Status LastModified by Organization Details LastModified Time None Recorded Advance Directives Directive None Recorded Payers Encounter Date Sequence Insurance Name Policy Number Policy Brown Covered Member ID Brown Member ID Guarantor Name 03/12/[address] [facility] [id number] Radha R Ufert [id number] Radha Ufert 03/26/[address] [facility] [id number] Radha R Ufert [id number] Radha Ufert 08/04/[address] [facility] [id number] Radha R Ufert [id number] Radha Ufert 02/09/[address] [facility] [id number] Radha R Ufert [id number] Radha Ufert Notes Date Note Type Note Provider Name and Address Organization Details Recorded Time 03/26/2022 text/html it is a 46-year- old female with severe menorrhagia. She has longstanding very heavy bleeding. Her menses are regular. However, they require double protection. Patient has accidents, getting blood on her bedding and clothing. Is affected work. She changes a pad or tampon every hour. She leaks blood around the pad and tampon. This bleeding has a profound impact on her quality of life and her activities of daily living. We discussed treatment options. The patient has limited medical treatment options. She does not want a IUD or a subdermal implant or the Depo shot. She is not what progesterone only pills. There is question whether these are safe in her, due to her history of DVT we talked about procedures and surgeries. We agreed to endometrial ablation bilateral salpingectomy. Talked about the procedures in detail. I showed her a video of the endometrial ablation. We spent over 40 minutes [id number]. We made a decision to perform surgery. Most of the, greater than 50%, time spent together was in counseling. The patient understands the procedure. The procedure was described to the patient in great detail. the patient also understands the risks. The risks were also explained in detail. She understands that injuries May occur during surgery. She understands these injuries can result in hospitalization, more surgery, and severe illness. She understands there is risk of hemorrhage and infection.Patient is on Xarelto will require discontinuation of Xarelto 24 hours before the surgery. Lexa Rivera MD [address], [place], [address], [facility] 07/28/2022 11:20:52 08/04/2022 text/html this patient is a 47-year-old female presents postop follow-up. She is 1 week postop from my laparoscopic /Robotic bilateral salpingectomy and endometrial ablation. She tolerated to recovery well. She has some foul-smelling vaginal discharge. She has no other signs or symptoms of endometritis. We agreed to treat with antibiotics. She will up as needed. She was given precautions on endometriosis. Incisions are clean dry and intact. Lexa Rivera MD [address], [place], [address], [facility] 08/04/2022 17:33:11 02/09/2023 text/html Annual GYNReport ed bypatient.Menstrual cycle:Normal menses Urinary symptoms:No hematuria; No incontinence Vulva:No genital lesion Vagina:Normal vaginal discharge Breast:No breast pain; No breast lump; No nipple discharge Current Contraception:Tubal ligation Sexual complaints:No sexual complaints; No pain during intercourse; Normal libido Menopausal Symptoms:No menopausal symptoms; Normal vaginal lubrication Psychological symptoms:No depression; No anxiety; No PMDD Preventive measures:Encourage self breast examination; Encourage regular exercise; Encourage no tobacco use; Encourage regular mammograms starting age 40; Needs to schedule mammogram; Needs to schedule colonoscopy L[facility] [address], [place], [address], [facility] 02/09/2023 10:16:21 OBGyn Episode Ob Episode Information Episode Created Date Number of Fetuses Patient Bloodtype Patient rh Status Prepregnancy Weight lbs Domestic Partner Domestic Partner Phone Father Name Affirmative Action Officer Status 03/06/20 22 1 CLOSED Fetus Data First Name Last Name Admitted to NICU Weight (g) Sex Living Outcome Pediatric Complications Fetus ID Race Codes Race Delivery Type 2097.86 3 Full Term [id number] Repeat Jayson Calculation Initial Jayson Date Initial Exam Date Initial Exam Provider Initial Ultrasound Date Last Menstrual Period Date Ultra Sound Weeks Gestation 0 Eighteen To Twenty Week Jayson Update Ultra Sound Date Fundal Height At Umbil Quickening Date Ultra Sound Latest Weeks Gestation Final Jayson Confirmed By Final Jayson Confirmed Date Final Jayson Date Ultra Sound Latest Days Gestation 0 0 Menstrual History Last Menstrual Date Menses Monthly On Bcp Conception Prior Menses Frequency Hcg Plus Date Menarche Onset Age Delivery Information Delivery Date Delivery Type Labor Anesthesia Weeks Gestation Incision Type Labor Labor Length Hrs Delivered By Post Complications Tubal Sterilization Discharge Date Comments 7 Discharge Information Feeding Method Contraceptive Method Maternal HG B and HCT Levels Ob Episode Information Episode Created Date Number of Fetuses Patient Bloodtype Patient rh Status Prepregnancy Weight lbs Domestic Partner Domestic Partner Phone Father Name Affirmative Action Officer Status 03/06/20 22 1 CLOSED Fetus Data First Name Last Name Admitted to NICU Weight (g) Sex Living Outcome Pediatric Complications Fetus ID Race Codes Race Delivery Type [phone] Full Term [id number] Primary Jayson Calculation Initial Jayson Date Initial Exam Date Initial Exam Provider Initial Ultrasound Date Last Menstrual Period Date Ultra Sound Weeks Gestation 0 Eighteen To Twenty Week Jayson Update Ultra Sound Date Fundal Height At Umbil Quickening Date Ultra Sound Latest Weeks Gestation Final Jayson Confirmed By Final Jayson Confirmed Date Final Jayson Date Ultra Sound Latest Days Gestation 0 0 Menstrual History Last Menstrual Date Menses Monthly On Bcp Conception Prior Menses Frequency Hcg Plus Date Menarche Onset Age Delivery Information Delivery Date Delivery Type Labor Anesthesia Weeks Gestation Incision Type Labor Labor Length Hrs Delivered By Post Complications Tubal Sterilization Discharge Date Comments 7 Discharge Information Feeding Method Contraceptive Method Maternal HG B and HCT Levels
--- OUTSIDE RECORDS SUMMARY | 2024-12-20 14:40 | XMS_ITS | Encounter Summary ---
Author Organization [facility] Address [address] [place] [address] Phone Care Team Providers Care Rapid Transit Operator Name Role Phone Denice Sierra MD Unavailable [phone] Nain, Cheryl N FIRER HELPER, BEAD TRIMMER Primary Care Provider [phone] Reason for Visit * Reason Comments Medication Refill Encounter Details Date Type Department Care Team (Late st Contact Info) Description 08/05/2024 Refill [facility] - Primary Care - [place] [address] [place] [address] Damon Salas MD [address] [address] Medication Refill Social History Tobacco Use Types Packs/Day Years Used Date Smoking Tobacco: Former Cigarettes Smokeless Tobacco: Never Alcohol Use Standard Drinks/Week Comments Not Currently 0 (1 standard drink = 0.6 oz pur e alcohol) occasional, socailly [facility] Utilities Answer Date Recorded In the past 12 months has [employer] electric, gas, oil, or water company threatened to shut off services in your home? No 01/31/2024 Social Connection and Isolat ion Panel [NHANES] Answer Date Recorded In a typical week, how many times do you talk on the phone with family, friends, or neighbors? More than three times a week 01/31/2024 How often do you get togethe r with friends or relatives? Once a week 01/31/2024 How often do you attend chur ch or advent services? Never 01/31/2024 Do you belong to any clubs o r organizations such as pentecostal groups, unions, fraternal or athletic groups, or school groups? No 01/31/2024 How often do you attend meet ings of the clubs or organizations you belong to? Never 01/31/2024 Are you , , di vorced, , never , or living with a partner? 01/31/2024 AUDIT-C Answer Date Recorded Q1: How often do you have a drink containing alc ohol? Monthly or less 01/31/2024 Q2: How many drinks containi ng alcohol do you have on a typical day when you are drinking? 1 or 2 01/31/2024 Q3: How often do you have si x or more drinks on one occasion? Never 01/31/2024 Overall Financial Resource Strain (CARDIA) Answe r Date Recorded How hard is it for you to pa y for the very basics like food, housing, medical care, and heating? Not hard at all 01/31/2024 PHQ-2 Answer Date Recorded Total Score - Questions 1-9 0 12/11 [facility] - Occupational Stress Questionnaire Answer Date Recorded Do you feel stress - tense, restless, nervous, or anxious, or unable to sleep at night because your mind is troubled all the time - these days? Only a little 01/31/2024 Exercise Vital Sign Answer Date Recorde d On average, how many days pe r week do you engage in moderate to strenuous exercise (like a brisk walk)? Patient declined On average, how many minutes do you engage in exercise at this level? Patient declined 01/31/2024 Hunger Vital Sign Answer Date Recorded Within the past 12 months, y ou worried that your food would run out before you got the money to buy more. Never true 01/31/20 24 Within the past 12 months, t he food you bought just didn't last and you didn't have money to get more. Never true 01/31/2024 PRAPARE - Transportation Answer Date Re corded In the past 12 months, has l ack of transportation kept you from medical appointments or from getting medications? No 01/11 In the past 12 months, has l ack of transportation kept you from meetings, work, or from getting things needed for daily living? No 01/31/2024 Housing Stability Vital Sign Answer Bakari e Recorded In the last 12 months, was t here a time when you were not able to pay the mortgage or rent on time? No 01/31/2024 In the last 12 months, how many places have you lived? 1 01/31/2024 In the last 12 months, was t here a time when you did not have a steady place to sleep or slept in a fci (including now)? No 01/31/2024 Education Answer Date Recorded What is the highest level of school you have completed or the highest degree you have received? Associate degree: occupational, technical, or vocational program 06/11/2020 Sexually Active Control Partners Comments Yes Male Condom Male Comments No Sex and Gender Information Value Date Recorded Sex Assigned at Not on file Legal Sex Female 12:12 AM CDT Gender Identity Not on file Sexual Orientation Not on file documented as of this encounter Miscellaneous Notes * Telephone Encounter - Yuli Good RN - 08/05/2024 10:42 AM CDT Refills on file according to last Rx 02/02/24 - [facility] - year supply documented in this encounter Plan of Treatment Not on file documented as of this encounter 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
--- OUTSIDE RECORDS SUMMARY | 2024-12-20 14:40 | XMS_ITS | Clinical Summary ---
Author Organization [facility] D Address [address] [place] [address] Care Team Providers Care Financial Manager Name Role Phone Samm Connelly MD Unavailable [phone] Rosa José MD Primary Care Provider Allergies Active Allergy Reactions Criticality Noted Date Comments Hydrocodone Nausea only Low 06/09/2022 Medications rivaroxaban (XARELTO) 20 mg tablet Take 20 mg by mouth daily 03/24/2022 Active valsartan-hydroc hlorothiazide (DIOVAN-HCT) 160-25 mg per tablet Take 1 tablet by mouth daily 01/15/2022 Active cetirizine (ZyrTEC) 10 mg tablet Take 10 mg by mouth daily Active Active Problems Problem Noted Date Diagnosed Date Basal cell carcinoma of skin of other part of tr unk 06/09/2022 Overview (06/09/2022): Basal cell carcinoma of skin of trunk, except scrotum - (Added by RANDALL Conv) Iron deficiency 02/10/2022 Elevated platelet count 09/25/2021 Hypertension 09/25/2021 Menorrhagia with regular cycle 09/25/2021 Basal cell carcinoma (BCC) of skin of lip 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 04/03/2016 Actinic keratosis 08/01/2015 History of nonmelanoma skin cancer 08/01/2015 Skin neoplasm 08/01/2015 Surgical History Surgery Date Site/Laterality Comments SECTION section Medical History Medical History Date Comments Basal cell carcinoma of skin of other parts of face Basal cell carcinoma of skin of other parts of face - (Added by TW Conv) Basal cell carcinoma of skin of other part of trunk Basal cell carcinoma of skin of trunk, except scrotum - (Added by TW Conv) Hypertension May-Thurner syndrome Menorrhagia with regular cycle Elevated platelet count Iron deficiency Actinic keratosis Family History Medical History Relation Name Comments Basal cell carcinoma Father Melanoma Mother Cancer Other 1 Diabetes Other 2 Heart disease Other 3 Relation Name Status Comments Father Mother Other 1 Other 2 Other 3 Social History Tobacco Use Types Packs/Day Years Used Date Smoking Tobacco: Former Tobacco Cessation:Counseling Given: Not Answered Alcohol Use Standard Drinks/Week Comments Yes 0 (1 standard drink = 0.6 oz pur e alcohol) AUDIT-C Answer Date Recorded Q1: How often do you have a drink containing alc ohol? Monthly or less 06/12/2022 Average Number of Drinks Not on file 022 Q3: How often do you have si x or more drinks on one occasion? 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 [employer] Not on file Not on file Not on file Obstetrics History Last Filed Vital Signs Vital Sign Reading Time Taken Comments Blood Pressure 122/70 06/12/2022 8:25 AM CDT Pulse 73 06/12/2022 8:25 AM CDT Temperature - - Respiratory Rate - - Oxygen Saturation 97% 06/12/2022 8:25 AM CDT Inhaled Oxygen Concentration - - Weight 83.7 kg (184 lb 9.6 oz) 06/12/2022 8:25 A M CDT Height 154.9 cm (5' 1 ) 06/12/2022 8:25 AM CDT Body Mass Index 34.88 06/12/2022 8:25 AM CDT Plan of Treatment Health Maintenance Due Date Last Done Comments Cervical Cancer Screening 1977 Colon Cancer Screening-Colonoscopy 1977 Depression Screening 1977 Hepatitis C Screening 1977 DTaP/Tdap/Td Vaccine (1 - Tdap) 1988 Hepatitis B Screening 1995 Regular Well Visit/Exam 18-64 1995 Breast Cancer Screening-Mammogram 07/16/2022 10/05/2 021 Influenza Vaccine (#1) 2024 Pneumococcal vaccine <65 Aged Out No longer eligible based on patient's age to complete this topic Insurance Care Teams Financial Manager Relationship Specialty Start Date End Date Rosa José MD PCP - General Family Medicine 06/12/22 Samm Connelly MD Credit Professional Cardiology 06/09/22
--- OUTSIDE RECORDS SUMMARY | 2024-12-20 14:40 | XMS_ITS | Encounter Summary ---
Author Organization [facility] Address [address] [place] [address] Phone Care Team Providers Care Port Steward Name Role Phone Tho José MD Primary Care Provider [phone] Denice Sierra MD Unavailable [phone] Cheryl Gillette APRN, CNP Primary Care Provider [phone] Reason for Visit * Reason Comments Medication Refill Encounter Details Date Type Department Care Team (Late st Contact Info) Description 04/17/2022 Refill [facility] - Family [facility] [address] [place] [address] Tho José MD [address] [place] [address] Medication Refill Social History Tobacco Use Types Packs/Day Years Used Date Smoking Tobacco: Every Day Cigarettes 0.5 32 Smokeless Tobacco: Never Alcohol Use Standard Drinks/Week Comments Yes 0 (1 standard drink = 0.6 oz pur e alcohol) occasional, socailly PHQ-2 Answer Date Recorded Total Score - Questions 1-9 0 12/11 Education Answer Date Recorded What is the highest level of school you have completed or the highest degree you have received? Associate degree: occupational, technical, or vocational program 06/11/2020 Sexually Active Control Partners Comments Not Currently Comments No Sex and Gender Information Value Date Recorded Sex Assigned at Not on file Legal Sex Female 12:12 AM CDT Gender Identity Not on file Sexual Orientation Not on file documented as of this encounter Miscellaneous Notes * Telephone Encounter - Yuli Good RN - 04/17/2022 1:36 PM CDT Images from the original note were not included. Valsartan-hydroCHLOROthiazide Dispensed Days Supply Quantity Provider Pharmacy VALSARTAN/HYDROCHLOROTHIAZIDE 160-25 MG TABS 04/16/2022 90 90 Tablet [facility] VALSARTAN/HCTZ 160MG/25MG TABLETS 01/16/2022 90 90 Each [facility] #... documented in this encounter Plan of Treatment Not on file documented as of this encounter Visit Diagnoses Diagnosis Essential hypertension Unspecified essential hypertension documented in this encounter Additional Health Concerns Assessment Noted Time PHQ-9 Depression Total Score: 0 07/02/20 21 2:19 PM CDT documented as of this encounter Care Teams Port Steward Relationship Specialty Start Date End Date Tho José MD [address] [place] [address] PCP - General Family Medicine 03/20/16 03/02/24 Cheryl Gillette APRN, CNP [address] [address] PCP - General Advanced Practice Nurse 08/23/2408/23 Denice Sierra MD [address] [place] [address] Obstetrics & Gynecology 12/28/19 documented as of this encounter
--- OUTSIDE RECORDS SUMMARY | 2024-12-20 14:40 | XMS_ITS | Encounter Summary ---
Author Organization [facility] Address [address] [place] [address] Phone Care Team Providers Care Sales Administrator Name Role Phone Rosa José MD Primary Care Provider [phone] Denice Sierra MD Unavailable [phone] Cheryl Gillette APRN, CNP Primary Care Provider [phone] Reason for Visit * Reason Comments Medication Refill Encounter Details Date Type Department Care Team (Late st Contact Info) Description 07/11/2023 Refill [facility] - Family [facility] [address] [place] [address] Rosa José MD [address] [place] [address] Medication Refill Social History Tobacco Use Types [...] Telephone Encounter - Yuli Good RN - 07/13/2023 9:50 AM CDT Medication failed the protocol, provider to review and approve the medication order if appropriate. Requested Prescriptions Pending Prescriptions Disp Refills valsartan-hydroCHLOROthiazide (DIOVAN-HCT) 160-25 MG Tablet [Pharmacy Med Name: VALSARTAN/HCTZ 160MG/25MG TABLETS] 90 Tablet 1 Sig: TAKE 1 TABLET BY MOUTH DAILY ANGIOTENSIN-II RECEPTOR BLOCKERS-DIURETICS COMBO PROTOCOL Failed - 07/11/2023 5:35 AM Failed - Serum potassium on record in past 12 months No results found for: POTASSIUM, POCTK Failed - Serum sodium on record in past 12 months No results found for: SODIUM Failed - GFR on record in past 12 months No results found for: GFRNA Passed - BP on record in the past year Clinician-entered: BP Readings from Last 3 Encounters: 10/23/22 128/80 02/24/22 119/64 02/20/22 127/71 Patient-entered: No data recorded Passed - No positive test in the past 12 months or most recent test was negative Passed - Visit with relevant provider in past year or upcoming 90 days Recent Visits Date Type Provider Dept 10/23/22 Office Visit Rosa José MD [facility] Showing recent visits within past 365 days and meeting all other requirements Future Appointments No visits were found meeting these conditions. Showing future appointments within next 90 days and meeting all other requirements Passed - No active on record documented in this encounter Plan of Treatment Not on file documented as of this encounter Visit Diagnoses Diagnosis Essential hypertension Unspecified essential hypertension documented in this encounter Additional Health Concerns Assessment Noted Time PHQ-9 Depression Total Score: 0 07/02/20 21 2:19 PM CDT documented as of this encounter Care Teams Sales Administrator Relationship Specialty Start Date End Date Rosa José MD [address] [place] [address] PCP - General Family Medicine 03/20/16 03/02/24 Cheryl Gillette, LINTER SAW SHARPENER, POT TENDER 2 [facility] [address] [address] PCP - General Advanced Practice Nurse 08/23/2408/23 Denice Sierra MD [address] [place] [address] Obstetrics & Gynecology 12/28/19 documented as of this encounter
--- OUTSIDE RECORDS SUMMARY | 2024-12-20 14:40 | XMS_ITS | Encounter Summary ---
Author Organization [facility] Address [address] [place] [address] Phone Care Team Providers Care Coat Maker Name Role Phone Rosa José MD Primary Care Provider [phone] Denice Sierra MD Unavailable [phone] Cheryl Gillette APRN, CNP Primary Care Provider [phone] Reason for Visit * Reason Comments Medication Refill Encounter Details Date Type Department Care Team (Late st Contact Info) Description 01/12/2023 Refill [facility] - Family [facility] [address] [place] [address] Rosa José MD [address] [place] [address] Medication Refill Social History Tobacco Use Types [...] encounter Miscellaneous Notes * Telephone Encounter - Luz Crowder RN - 01/12/2023 11:31 AM CDT Medication failed the protocol, provider to review and approve the medication order if appropriate. Requested Prescriptions Pending Prescriptions Disp Refills valsartan-hydroCHLOROthiazide (DIOVAN-HCT) 160-25 MG Tablet [Pharmacy Med Name: VALSARTAN/HCTZ 160MG/25MG TABLETS] 90 Tablet 1 Sig: TAKE 1 TABLET BY MOUTH DAILY ANGIOTENSIN-II RECEPTOR BLOCKERS-DIURETICS COMBO PROTOCOL Failed - 01/12/2023 5:37 AM Failed - Serum potassium on record [...] Dept 10/23/22 Office Visit Rosa José MD [facility] Showing recent visits within past 365 days [...] documented as of this encounter Care Teams Coat Maker Relationship Specialty Start Date End Date Rosa José MD [address] [place] [address] PCP - General Family Medicine 03/20/16 03/02/24 Cheryl Gillette, PREPARER SAMPLES AND REPAIRS, BOWLING BALL MARKER [address] [address] PCP - General Advanced Practice Nurse 08/23/2408/23 Denice Sierra MD [address] [place] [address] Obstetrics & Gynecology 12/28/19 documented as of this encounter
--- OUTSIDE RECORDS SUMMARY | 2024-12-20 14:40 | XMS_ITS | Clinical Summary ---
Author Organization [facility] Address [address] [place] [address] Phone Care Team Providers Care Raw Shellfish Preparer Name Role Phone Denice Sierra MD Unavailable [phone] Allergies Active Allergy Reactions Criticality Noted Date Comments Hydrocodone Nausea Low 06/09/2022 Medications Cetirizine HCl (ZYRTEC ALLERGY PO) Take by mouth. Active rivaroxaban (Xarelto) 20 MG TabletIndications:P rophylaxis of Venous Thromboembolism Take 1 Tablet by mouth daily. Take with food. Indications: Prevention of Unwanted Clot in Veins 90 Tablet 3 02/02/20 24 Active valsartan-hydroCHLO ROthiazide (DIOVAN-HCT) 160-25 MG TabletIndications:E ssential hypertension Take 1 Tablet by mouth daily. 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 Immunizations Immunization Administration Dates Next Due Influenza Vaccine, Quadrivalent, PF 07/27/2017 Influenza, high-dose, trivalent, PF 08/30/2014 Family History Medical History Relation Name Comments Skin Cancer Father Sathish adam Stroke Father Sathish adam Cancer Maternal Grandfather Jacobo ramirez Heart f ailure Heart Disease Maternal Grandfather Jacobo ramirez Cancer Maternal Grandmother Tammy adam Lung ca ncer Diabetes Mother Alicia Andra Cancer Paternal Grandfather Jaya adam Lung ca ncer Cancer Paternal Grandmother Dena ramirez Lung cancer Relation Name Status Comments Father Sathish adam Alive Maternal Grandfather Jacobo ramirez Maternal Grandmother Tammy adam Mother Alicia Adam Alive Paternal Grandfather Jaya adam Paternal Grandmother Dena ramirez Social History Tobacco Use Types Packs/Day Years Used Date Smoking Tobacco: Former Cigarettes Smokeless Tobacco: Never Tobacco Cessation:Counseling Given: No Alcohol Use Standard Drinks/Week Comments Not Currently 0 (1 standard drink = 0.6 oz pur e alcohol) occasional, socailly C Utilities Answer Date Recorded In the past 12 months has th e electric, gas, oil, or water company threatened [...] week 01/31/2024 How often do you attend [facility] or yazdanism services? Never 01/31/2024 Do you belong to any clubs o r organizations such as orthodoxy groups, unions, fraternal or athletic groups, or [...] Total Score - Questions 1-9 0 12/11 [facility] - Occupational Stress Questionnaire Answer Date Recorded [...] on file Sexual Orientation Not on file Last Filed Vital Signs Vital Sign Reading Time Taken Comments Blood Pressure 132/70 02/02/2024 9:38 AM CDT Pulse 84 02/02/2024 9:38 AM CDT Temperature 36.4 C (97.5 F) 02/02/2024 9:38 AM CDT Respiratory Rate 16 02/02/2024 9:38 AM CDT Oxygen Saturation 96% 02/02/2024 9:38 AM CDT Inhaled Oxygen Concentration - - Weight 87.4 kg (192 lb 9.6 oz) 02/02/2024 9:38 A M CDT Height 154.9 cm (5' 1 ) 02/02/2024 9:38 AM CDT Body Mass Index 36.39 02/02/2024 9:38 AM CDT Plan of Treatment Health Maintenance Due Date Last Done Comments Hepatitis C Virus (HCV) Screening 1977 TdaP Immunization 1977 SARS-COV-2 Immunization (#1) 1982 Hepatitis B Immunization (1 of 3 - 19+ 3-dose series) 1996 Pneumococcal Immunization Combined (1 of 2 - PCV) 1996 Pap Smear 02/08/2016 02/07/2013 Colonoscopy 2022 Colorectal Cancer Screening 2022 Mammogram 07/16/2022 07/16/2021, 09/27/2018, 01/04/2014 Influenza Immunization (#1) 06/12/202407/12, 08/30/2014 Cervical Cancer Screening (CCS) 02/10/2028 HPV/Cotest 02/10/2028 02/09/2023 Respiratory Syncytial Virus (RSV) Immunization (Adult) (1 - 1-dose 75+ series) 2052 Discussion re Starting/Frequency of Mammograms Completed 07/16/2021, 09/27/2018, 01/04/2014 Meningococcal Immunization (ACWY) Aged Out No longer eligible b ased on patient's age to complete this topic Rotavirus Immunization Aged Out No lo nger eligible based on patient's age to complete this topic Procedures Procedure Name Priority Date/Time Associated Diagnosis Comments RONALD SCREENING BILATERAL DIGITAL W CAD W HARPER Routine 07/16/2021 4:56 PM CDT Encounter for screening mammogram for breast cancer PATHOLOGY CYTOLOGY MANAGER OF INTERNAL AUDIT Routine 02/07/2013 from Last 3 Months or Most Recently Relevant to Health Maintenance Results * RONALD SCREENING BILATERAL DIGITAL W CAD W HARPER (07/16/2021 4:56 PM CDT) Anatomical Region Laterality Modality breast Bilateral Mammography 07/16/2021 4:22 PM CDT Narrative 07/17/2021 11:43 AM CDT - RONALD SCREENING BILATERAL DIGITAL W CAD W HARPER BILATERAL DIGITAL SCREENING MAMMOGRAM 3D/2D WITH CAD WITH MEDIOLATERAL OBLIQUE CRANIOCAUDAL: 07/16/2021 The study was acquired using digital technology and interpreted from soft copy. Current study was also evaluated with [employer] version 7.2. 2D digital mammographic views, as well as 3D digital tomosynthesis were performed in the CC and MLO projections. CLINICAL: Routine screening. Patient has no complaints. Personal history of skin cancer. No family history of breast cancer. COMPARISONS: Comparison is made to exams dated: 09/27/2018 [facility] and 01/04/2014 [facility]. BREAST TISSUE:There are scattered fibroglandular densities in both breasts. FINDINGS: No significant masses, calcifications, or other findings are seen in either breast. There has been no significant interval change. IMPRESSION: BI-RAD 1 NEGATIVE There is no mammographic evidence of malignancy. A 1 year screening mammogram is recommended. The patient has been or will be contacted. The patient will be entered into a reminder system with a target due date of 1 year for her next screening exam. Electronically signed by: Santy roman/olu:07/17/2021 11:15:37 Outside Property Agent(s): RT Chris(R)(M), [facility] letter sent: Normal Exam Reading location: [place] BI-RADS: 1 Negative Procedure Note Santy Burgos MD - 07/17/2021 - RONALD SCREENING BILATERAL DIGITAL W CAD W HARPER BILATERAL DIGITAL SCREENING MAMMOGRAM 3D/2D WITH CAD WITH MEDIOLATERAL OBLIQUE CRANIOCAUDAL: 07/16/2021 The study was acquired using digital technology and interpreted from soft copy. Current study was also evaluated with [employer] version 7.2. 2D digital mammographic views, as well as 3D digital tomosynthesis were performed in the CC and MLO projections. CLINICAL: Routine screening. Patient has no complaints. Personal history of skin cancer. No family history of breast cancer. COMPARISONS: Comparison is made to exams dated: 09/27/2018 [facility] and 01/04/2014 [facility]. BREAST TISSUE:There are scattered fibroglandular densities in both breasts. FINDINGS: No significant masses, calcifications, or other findings are seen in either breast. There has been no significant interval change. IMPRESSION: BI-RAD 1 NEGATIVE There is no mammographic evidence of malignancy. A 1 year screening mammogram is recommended. The patient has been or will be contacted. The patient will be entered into a reminder system with a target due date of 1 year for her next screening exam. Electronically signed by: Santy Burgos M.D. ll/olu:07/17/2021 11:15:37 Outside Property Agent(s): RT Chris(R)(M), [facility] letter sent: Normal Exam Reading location: [place] BI-RADS: 1 Negative Rosa José MD IMG MAMMO ORDERABLES Final Result * PATHOLOGY CYTOLOGY MANAGER OF INTERNAL AUDIT (02/07/2013) Specimen of unknown material (specimen) Yara Dexter [facility] PATHOLOGY/CYTOLOGY ORDERABL ES Final Result from Last 3 Months or Most Recently Relevant to Health Maintenance Insurance [facility] Care Teams Raw Shellfish Preparer Relationship Specialty Start Date End Date Denice Sierra MD Obstetrics & Gynecology 12/28/19
--- OUTSIDE RECORDS SUMMARY | 2024-12-20 14:40 | XMS_ITS | Referral Summary ---
Author Organization 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 Actinic keratosis 08/01/2015 History of nonmelanoma skin cancer 08/01/2015 Skin neoplasm 08/01/2015 Social History Tobacco Use Types Packs/Day Years [...] on file Legal Sex Female 1:46 AM [employer]LECT[employer] OUTSIDE Gender Identity Not on file Sexual Orientation Not on file 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
--- OUTSIDE RECORDS SUMMARY | 2024-12-20 14:40 | XMS_ITS | Encounter Summary ---
Author Organization [facility] Address [address] [place] [address] Phone Care Team Providers Care Drafter Tool Design Name Role Phone Rosa José MD Primary Care Provider [phone] Denice Sierra MD Unavailable [phone] Cheryl Gillette APRN, CNP Primary Care Provider [phone] Reason for Visit * Reason Comments Medication Refill Encounter Details Date Type Department Care Team (Late st Contact Info) Description 04/12/2023 Refill [facility] - Primary Care - [place] [address] [place] [address] Rosa José MD [address] [place] [address] Medication Refill Social History Tobacco Use Types [...] encounter Miscellaneous Notes * Telephone Encounter - Radha Hardin RN - 04/12/2023 12:20 PM CDT Medication failed the protocol, provider to review and approve the medication order if appropriate. Requested Prescriptions Pending Prescriptions Disp Refills Xarelto 20 MG Tablet [Pharmacy Med Name: XARELTO 20MG TABLETS] 90 Tablet 3 Sig: TAKE 1 TABLET BY MOUTH DAILY WITH FOOD FOR BLOOD CLOT IN VEINS Not Delegated - DOACs Protocol Failed - 04/12/2023 5:50 AM Failed - This refill cannot be delegated Failed - CBC on record in the past year WBC Date Value Ref Range Status 01/07/2022 7.64 4.00 - 12.00 10(3)/mcL Final RBC Date Value Ref Range Status 01/07/2022 4.42 3.80 - 5.30 10(6)/mcL Final HEMATOCRIT (HCT) Date Value Ref Range Status 01/07/2022 39.5 36.0 - 47.0 % Final HEMOGLOBIN (HGB) Date Value Ref Range Status 01/07/2022 12.7 12.0 - 15.8 g/dL Final MCV Date Value Ref Range Status 01/07/2022 89.4 82.0 - 96.0 fL Final MCH Date Value Ref Range Status 01/07/2022 28.7 26.0 - 34.0 pg Final MCHC Date Value Ref Range Status 01/07/2022 32.2 31.0 - 36.0 g/dL Final Failed - CMP on record in the past year No results found for: SODIUM, POTASSIUM, CHLORIDE, CO2VEN, ANIONGAP, GLUCOSE, BUN, CREATININE, BCRATIO8, TOTALPROTEIN, ALBUMIN, AGRT, AGRATIO, CALCIUM, TBIL, SGOTAST, SGPTALT, ALKALINEPHO, GFRNA, GFRA, GFRES, CMPREQFAST, CMPFAST, CMPFAST Failed - Creatinine and GFR on record in the past year No results found for: CREATININE, GFRES No results found for: GFRNA Passed - No positive test in the past 12 months or most recent test was negative Passed - Visit with relevant provider in past 12 months or upcoming days Recent Visits Date Type Provider Dept 10/23/22 Office Visit Rosa José MD [facility] Showing recent visits within past 365 days and meeting all other requirements Future Appointments Date Type Provider Dept 04/22/23 Appointment Rosa José MD [facility] Showing future appointments within next 90 days and meeting all other requirements Passed - No active on record documented in this encounter Plan of Treatment Not on file documented as of this encounter Visit Diagnoses Not on filedocumented in this encounter Additional Health Concerns Assessment Noted Time PHQ-9 Depression Total Score: 0 07/02/20 21 2:19 PM CDT documented as of this encounter Care Teams Drafter Tool Design Relationship Specialty Start Date End Date Rosa José MD [address] [place] [address] PCP - General Family Medicine 03/20/16 03/02/24 Cheryl Gillette, DISH NETWORK INSTALLER, TOWEL CABINET REPAIRER [address] [address] PCP - General Advanced Practice Nurse 08/23/2408/23 Denice Sierra MD [address] [place] [address] Obstetrics & Gynecology 12/28/19 documented as of this encounter
== END 2024-12-20 14:41 | disposition home or self-care (01) ==
PROVIDERS: Emergency Provider Registered Nurse; PCP Internal Medicine
DX: J40 Bronchitis, not specified as acute or chronic (principal); Z20.822 Contact with and (suspected) exposure to COVID-19; I10 Essential (primary) hypertension; E78.5 Hyperlipidemia, unspecified; I87.1 Compression of vein; Z95.820 Peripheral vascular angioplasty status with implants and grafts; Z87.891 Personal history of nicotine dependence
CPT/HCPCS: 71046; 87426; 87804; 99213; G0463